=== PATIENT | male | born 1950 | race Caucasian/White ===

== ENCOUNTER 2018-01-19 07:25 | Emergency (ER) | payer OTHER ==
[~2018-01-19] VITALS: Ht 185.4 cm; Wt 98.2 kg
[2018-01-19 08:06] LABS: HEMATOCRIT 38.7 % (38.0-50.0); MCH 30.4 PG (29.0-34.0); MCHC 33.6 G/DL (30.0-36.0); MCV 90.6 FL (86-99); PLATELET COUNT 319 K/uL (156-360); RBC DIS.WIDTH-CV 12.8 % (11.8-14.6); RED BLOOD COUNT 4.27 M/uL (4.00-5.50); WHITE BLOOD COUNT 13.1 K/uL (4.1-10.2)
[2018-01-19 08:14] LABS: PTT 24.4 SEC (25-37)
[2018-01-19 08:17] LABS: CHLORIDE 103 mEq/L (99-109); POTASSIUM 3.8 mEq/L (3.7-5.4); SODIUM 139 mEq/L (136-147)
[2018-01-19 08:19] LABS: GLUCOSE 272 mg/dL (70-99); TOTAL PROTEIN 6.8 g/dL (6.4-8.3)
[2018-01-19 08:21] LABS: TOTAL BILIRUBIN 0.4 mg/dL (0.0-1.0)
[2018-01-19 08:22] LABS: ALKALINE PHOSPHATASE 73 IU/L (3-129)
[2018-01-19 08:23] LABS: CREATININE 0.9 mg/dL (0.6-1.3); GFR ESTIMATE (CALCULATED) > 59 mL/min/ (58.99-99999)
[2018-01-19 08:24] LABS: AST (GOT) 83 IU/L (2-34); UREA NITROGEN (BUN) 13 mg/dL (9-23)
[2018-01-19 08:25] LABS: ALT (GPT) 54 IU/L (3-49)
[2018-01-19 08:31] LABS: TROP-I INTERPRETATION NEGATIVE; TROPONIN-I < 0.01 ng/mL (0.0-0.30)
[2018-01-19 09:57] LABS: HEMATOCRIT 36.6 % (38.0-50.0); HEMOGLOBIN 12.1 G/DL (12.5-16.6); MCV 90.8 FL (86-99)
[2018-01-19 11:59] VITALS: BP 157/87
== END 2018-01-19 12:04 | disposition short-term general hospital (02) ==
LOC: TRA 07:25 → EME 07:25 → TRA 12:04
PROVIDERS: Emergency Medicine Emergency Medical Services
DX: S35.8X9A Unspecified injury of other blood vessels at abdomen, lower back and pelvis level, initial encounter (principal); S25 Injury of blood vessels of thorax; S22.41XA Multiple fractures of ribs, right side, initial encounter for closed fracture; R10.9 Unspecified abdominal pain; V44.6XXA Car passenger injured in collision with heavy transport vehicle or bus in traffic accident, initial encounter; Y92.410 Unspecified street and highway as the place of occurrence of the external cause; I10 Essential (primary) hypertension; E11.9 Type 2 diabetes mellitus without complications; Z87.891 Personal history of nicotine dependence; Z88.0 Allergy status to penicillin
CPT/HCPCS: 70450; 71260; 72125; 72129; 72132; 74177; 80053; 81003; 84484; 85014; 85018; 85027; 85610; 85730; 86850; 86900; 86901; 93005; 99281; 99285; J1170; J7040; J7050